=== PATIENT | male | born 1995 | race Caucasian/White ===

== ENCOUNTER 2019-05-01 11:48 | Emergency (ER) | payer OTHER ==
[~2019-05-01] VITALS: Ht 175.3 cm; Wt 80.3 kg
[2019-05-01] MEDS ORDERED: AMOX-CLAV 875-1 EACH PO (12:02)
[2019-05-01] MEDS ORDERED: CLARITIN10 M1 PO (12:02)
[2019-05-01] MEDS ORDERED: FLONASE16 GM NASAL (15:49)
[2019-05-01] MEDS ORDERED: DOLOGESIC 500-1 EACH PO (15:49)
== END 2019-05-01 16:37 | disposition home or self-care (01) ==
LOC: ER 11:48
DX: J32.8 Other chronic sinusitis (principal); R51 Headache